=== PATIENT | male | born 1930 | race Caucasian/White ===

== ENCOUNTER 2020-02-17 11:01 | Emergency (ER) | payer OTHER ==
[~2020-02-17] VITALS: Ht 172.7 cm; Wt 72.6 kg
[2020-02-17 11:03] VITALS: Ht 172.7 cm; Wt 72.6 kg
[2020-02-17 11:51] LABS: CALCIUM 8.2 mg/dL (8.5-10.1); CARBON DIOXIDE 27.6 mmol/L (21-32); CHLORIDE SERUM 110 mmol/L (98-107); CREATININE SERUM 1.5 mg/dL (0.7-1.3); GLUCOSE SERUM 124 mg/dL (74-106); POTASSIUM SERUM 3.2 mmol/L (3.5-5.1); SODIUM SERUM 145 mmol/L (136-145)
[2020-02-17 11:55] LABS: ALKALINE PHOSPHATASE 59 U/L (46-116); ALT/SGPT 13 U/L (16-63); AST/SGOT 26 U/L (15-37); BILIRUBIN TOTAL 0.6 mg/dL (0.20-1.00)
[2020-02-17 12:01] LABS: ALBUMIN 2.4 g/dL (3.4-5.0); TOTAL PROTEIN, SERUM 4.8 g/dL (6.4-8.2)
[2020-02-17 12:03] VITALS: BP 42/49
[2020-02-17 13:23] LABS: PLATELET COUNT 218 x10^3mcL (130-400); RED CELL DISTRIBUTION WIDTH 29.4 % (11.5-14.5)
[2020-02-17 13:55] LABS: SEGMENTED NEUTROPHILS 16 % (37-75)
[2020-02-17 13:56] LABS: ATYPICAL LYMPH 7 %; MONOCYTE 2 % (0-7)
[2020-02-17 13:57] LABS: acanthocyte (spur cell) 1+; burr cell (echinocyte) 1+; target cell (codocyte) 1+
[2020-02-17 13:58] LABS: PLATELET MORPHOLOGY LARGE PLATELET SEEN; ovalocyte/elliptocyte 1+; schistocyte (helmet cell) 1+
[2020-02-17 14:30] LABS: rbc morphology (normal/abnorm) ABNORMAL (NORMAL)
== END 2020-02-17 17:05 | disposition expired ==
LOC: ED 11:01
PROVIDERS: Emergency Medicine
DX: I46.9 Cardiac arrest, cause unspecified (principal); I10 Essential (primary) hypertension; E11.9 Type 2 diabetes mellitus without complications; I48.91 Unspecified atrial fibrillation
CPT/HCPCS: 83880; 85060; J0171; J1953; J3370; J3490; J7030; J7050; Q9967